=== PATIENT | female | born 1995 ===

== ENCOUNTER → 2022-01-10 | Outpatient (CLI) | payer BC | LOC: COL.RAD 08:35 | DX: M25.561 Pain in right knee (principal) ==

== ENCOUNTER 2022-02-09 06:59 | Day surgery (SDC) | payer BC ==
[~2022-02-09] VITALS: Ht 167.6 cm; Wt 110.4 kg
[2022-02-09 08:06] VITALS: BP 114/62; PULSE 72; TEMP 98.3
[2022-02-09] MEDS ORDERED: CEPHALEXIN500 M1 PO (08:55)
[2022-02-09] MEDS ORDERED: ASPIRIN 81M81 MG/TA2 PO (08:56)
[2022-02-09] MEDS ORDERED: NORCO 325 MG-51 TAB PO (08:57)
[2022-02-09 10:40] VITALS: BP 123/62; PULSE 56; TEMP 97.5
--- NOTE | 2022-02-09 10:40 | NUR ---
PT TO BAY 1 PER CART FROM PACU. REPORT RECEIVED. VS OBTAINED. PT TOLERATING WATER. CALL LIGHT WITHIN REACH. DENIES ANY NEEDS AT THIS TIME.
[2022-02-09 10:55] VITALS: BP 138/74; PULSE 55
[2022-02-09 11:00] VITALS: TEMP 99.1
[2022-02-09 11:10] VITALS: BP 145/78; PULSE 55
--- NOTE | 2022-02-09 11:15 | NUR ---
PT TOLERATING MUFFIN AND WATER WITHOUT DIFFICULTY.
[2022-02-09 11:25] VITALS: BP 110/63; PULSE 67
--- NOTE | 2022-02-09 11:30 | NUR ---
PT RATES PAIN AT 6-7/10. ACETAMINOPHEN 1000 MG AND ROXICODONE 5 MG GIVE AT THIS TIME.
--- NOTE | 2022-02-09 12:05 | NUR ---
1140-IV DC'D AT THIS TIME. 1145-DISCHARGE EDUCATION COMPLETED AT THIS TIME. PT AND HER MOTHER VERBALIZED UNDERSTANDING OF HOME AND FOLLOW UP CARE. ALL QUESTIONS ANSWERED. DISCHARGE PAPERWORK GIVEN TO PT. 1205-PT OFF UNIT PER WHEELCHAIR. PT DISCHARGED TO HOME WITH HER MOTHER PER PERSONAL VEHICLE.
== END 2022-02-09 12:05 | disposition home or self-care (01) ==
LOC: SDCO 06:59
DX: S83.281A Other tear of lateral meniscus, current injury, right knee, initial encounter (principal)
CPT/HCPCS: J0171; J0690; J1100; J1885; J2405; J2704; J3010; J7120